=== PATIENT | female | born 1995 | race Caucasian/White ===

== ENCOUNTER 2024-09-20 12:15 | Emergency (ER) | payer OTHER, SELFPAY ==
--- NOTE | ~2024-09-20 | XR_ITS ---
AP and lateral views of the neck CLINICAL HISTORY: Foreign body FINDINGS: Osseous structures and intervertebral disc spaces and cervical spine are intact. No prevert ebral soft tissue swelling. Epiglottis unremarkable. Air column unremarkable. There is thyroid cartil age calcification. Questionable curvilinear foreign body just superior to the thyroid cartilage versu s additional calcification. IMPRESSION: Questionable curvilinear foreign body superior to calcified thyroid cartilage versus additional thyro id cartilage calcification. Consider noncontrast CT scan of the neck to further evaluate. Reviewed, dictated and finalized at location . LITION WORKER IMPRESSION: Questionable curvilinear foreign body superior to calcified thyroid cartilage v ersus additional thyroid cartilage calcification. Consider noncontrast CT scan of the neck to further evaluate.
[2024-09-20 12:27] VITALS: BP 136/90; PULSE 94; RESP 18; TEMP 36.4; O2SAT 99
--- NOTE | 2024-09-20 12:36 | ED_ITS ---
HPI - General Adult General Chief complaint: Upper Respiratory Infection Stated complaint: hard to drink Time Seen by Provider: 09/20/24 12:36 Source: patient Mode of arrival: ambulatory Limitations: no limitations History of Present Illness HPI narrative: 29-year-old female patient presents to the [facility] with complaints of concerns for foreign body to her throat. Patient states she ate steak on Saturday night and feels like it never really went down all the way. Patient not having any shortness of breath but states she has been coughing often and she does have a history of GERD. Patient states she woke up this morning with body aches and has had a headache for the last few days. Patient states she has been trying to drink carbonated drinks to see if she can get it to go down but feels like it is getting harder to drink. Patient not feeling short of breath at this time. Related Data Home Medications Medication Instructions Recorded Confirmed atogepant 30 mg tablet (Qulipta) 30 mg DIRECTED 09/20/24 09/20/24 phentermine 37.5 mg capsule 37.5 mg DIRECTED 09/20/24 09/20/24 sumatriptan succinate 50 mg tablet 50 mg PO DIRECTED 09/20/24 09/20/24 venlafaxine 75 mg capsule,extended 75 mg PO DIRECTED 09/20/24 09/20/24 release 24 hr Allergies Allergy/AdvReac Type Severity Reaction Status Date / Time No Known Allergies Allergy Verified 09/20/24 13:13 Review of Systems Review of Systems: CONSTITUTIONAL: Denies fever, chills, or sweats. Positive body aches starting today EYES: Denies visual changes, redness, or discharge. ENT: Denies rhinorrhea, congestion, positive sore throat, denies otalgia. CARDIOVASCULAR: Denies chest pain, palpitations, or edema. RESPIRATORY: positive cough denies dyspnea. GASTROINTESTINAL: Denies abdominal pain, nausea, vomiting, or diarrhea. GENITOURINARY: Denies dysuria or hematuria. SKIN: Denies rash or itching. MUSCULOSKELETAL: Denies back pain, joint pain, or myalgia. NEUROLOGIC: positive headache, numbness, or weakness. PSYCHIATRIC: Denies anxiety or depression. [facility] Past Medical History Medical History GERD (gastroesophageal reflux disease) Comments At the time of my signature I agree with nursing past medical history, surgical, social, and family history. There is no relevant family history pertinent to the presenting complaint. Exam Narrative: GENERAL: Well-appearing, well-nourished, and in no acute distress. HEAD: Normocephalic, atraumatic. EYES: PERRLA and EOMI. ENT: Nares clear, no rhinorrhea or epistaxis. Mucous membranes moist. posterior pharynx with no erythema, tonsillar enlargement, exudates lesions present. No obvious foreign body noted to the back of the throat. Bilateral TMs are clear no erythema or foreign bodies the canal. NECK: Supple. No lymphadenopathy. Patient does have little bit of tenderness on palpation along the trachea/esophagus. CHEST: Clear to auscultation. No respiratory distress. Patient able talk in clear complete sentences. No coughing noted during exam. HEART: Regular rate and rhythm. No murmur heard. Normal peripheral pulses. ABDOMEN: Soft, nontender, nondistended, normal active bowel sounds. EXTREMITIES: Normal range of motion. No edema. SKIN: Warm, dry, no rash. NEURO: No focal deficits. Alert and oriented x3. Course Course Level of Care: Express Care Visit Reevaluation(s) Reevaluation #1: Notified patient that the x-ray is questionable and that she is needing further workup for possible foreign body in the throat. Discussed with her that I did call [facility] and they do not have ENT on-call insult today. Discussed with her that if they could do the CT but if the CT shows a positive foreign body they would have to send her somewhere else for an ENT consult and upper GI. Attempted to also call [facility] they do not have this service at all. Re[place]. Patient did pick [facility] for further evaluation. Date: 09/20/24 Time: 13:36 Vital Signs Vital signs: Vital Signs Temperature 36.4 C 09/20/24 12:27 Pulse Rate 94 09/20/24 12:27 Respiratory Rate 18 09/20/24 12:27 Blood Pressure 136/90 09/20/24 12:27 Pulse Oximetry 99 09/20/24 12:27 Oxygen Delivery Room Air 09/20/24 12:27 Temperature 36.4 C 09/20/24 12:27 Pulse Rate 94 09/20/24 12:27 Respiratory Rate 18 09/20/24 12:27 Blood Pressure 136/90 09/20/24 12:27 Pulse Oximetry 99 09/20/24 12:27 Oxygen Delivery Room Air 09/20/24 12:27 Vital signs reviewed. The patient has been informed that they may have pre-hypertension or Hypertension based on a BP reading in the department. I recommend that the patient call the primary care provider listed on their discharge instructions or a physician of their choice this week to arrange follow up for further evaluation of possible pre-hypertension or Hypertension Transfer Transfered to: [facility] Transportation: Other ( private vehicle.) Transfer rationale: Possible foreign body in throat recommending CT and ENT consult Accepting physician: Dr. Sylvain Flynn Transfer comments: call gave report to Marina Wood with excepting physician Dr. Alcides flynn. Descending patient over for evaluation of a possible foreign body the throat for the past 2 days. X-ray shows is questionable and needing additional imaging such as CT and ENT consult. Attempted to call [facility] as well as [facility] in the elbow neither 1 have ENT on staff today recommended this [place]. Medical Decision Making MDM Narrative Medical decision making narrative: Plan care patient is to swab her for strep today since she is having some body aches and headache that would not necessarily be associated with foreign body. Discussed with her that we can try and do an x-ray but if there is no obvious foreign body seen she would need to follow up with her primary doctor. Discussed with her if there is a foreign body concern she will need to go to the ER for further evaluation. Patient verbalized understanding. Differential Diagnosis Differential Diagnosis: Differential diagnosis: Viral pharyngitis, pharyngitis, group A strep, infectious mononucleosis, gonococcal pharyngitis, exudative pharyngitis, oral candidiasis. Chronic allergies, postnasal drip, GERD, abscess formation, but glottitis, retropharyngeal abscess formation, or airway obstruction. Vital Signs Vital Signs: Vital Signs Temperature 36.4 C 09/20/24 12: Pulse Rate 94 09/20/24 12:27 Respiratory Rate 18 09/20/24 12:27 Blood Pressure 136/90 09/20/24 12:27 Pulse Oximetry 99 09/20/24 12:27 Oxygen Delivery Room Air 09/20/24 12:27 Temperature 36.4 C 09/20/24 12:27 Pulse Rate 94 09/20/24 12:27 Respiratory Rate 18 09/20/24 12:27 Blood Pressure 136/90 09/20/24 12:27 Pulse Oximetry 99 09/20/24 12:27 Oxygen Delivery Room Air 09/20/24 12:27 Lab Data Labs: Lab Results 09/20/24 Range/Units 12:55 POC Grp A Strep Screen Negative (Negative) Imaging Data Radiologist's impression: Close Soft Tissue Neck X-Ray (Signed) Sixto Lewis - 09/20/24 Launch?[facility] [address] [address] XRay Report Signed Patient: Joan Adame : 1995 MR#: [id number] Age: 29 Acct:[id number] Loc: [facility] ADM Date: 09/20/24Attending Dr: Ordering Physician: Saima Shi APRN Date of Service: 09/20/24 Procedure(s): XR soft tissue neck Accession Number(s): [id number] cc: NUCLEAR CONTROL OPERATOR PHYSICIAN; Saima Shi APRN~ AP and lateral views of the neck CLINICAL HISTORY: Foreign body FINDINGS: Osseous structures and intervertebral disc spaces and cervical spine are intact. No prevertebral soft tissue swelling. Epiglottis unremarkable. Air column unremarkable. There is thyroid cartilage calcification. Questionable curvilinear foreign body just superior to the thyroid cartilage versus additional calcification. IMPRESSION: Questionable curvilinear foreign body superior to calcified thyroid cartilage versus additional thyroid cartilage calcification. Consider noncontrast CT scan of the neck to further evaluate. Reviewed, dictated and finalized at [facility]. KIER BOILER Dictated By: Sixto Lewis MD 09/20/24 1310 Signed By: <Electronically signed by Sixto Lewis MD in [place]> Critical Care Time Critical Care Time Critical Care Time: No Discharge Plan Discharge Clinical Impression: Feeling of foreign body in throat Patient Disposition: Acute Care Hospital Condition: Stable Instructions: Antibiotic Form Follow-up/Referrals: PHYSICIAN,NUCLEAR CONTROL OPERATOR [Primary Care Provider] - Time of Disposition: 13:35
[2024-09-20 12:57] LABS: EDSTREPNEGPOS1 Negative (Negative)
== END 2024-09-20 13:34 | disposition short-term general hospital (02) ==
PROVIDERS: Emergency Provider Nurse Practitioner Family
DX: R09.A2 Foreign body sensation, throat (principal); K21.9 Gastro-esophageal reflux disease without esophagitis
CPT/HCPCS: 70360; 87081; 87880; 99213; G0463